=== PATIENT | female | born 1960 | race Caucasian/White ===

== ENCOUNTER 2024-07-06 23:48 | Emergency (ER) | payer OTHER, SELFPAY ==
[2024-07-06 23:48] VITALS: BMI 25.1
[2024-07-06 23:52] VITALS: BP 151/65
[2024-07-07 01:33] VITALS: BP 147/70
[2024-07-07 02:00] VITALS: BP 137/70
--- NOTE | 2024-07-07 02:38 | ED.GENMED ---
History of Present Illness
<Ana Franks MD, Resident - Last Filed: 07/07/24 04:14>
General
Chief Complaint: Facial Problem
Source: patient and family
Exam Limitations: none
Time Seen by Provider: 07/07/24 02:32
Nursing documentation reviewed up to this point in time: agreed with except (radiating into head, unilateral headaches.)
History of Present Illness
History of Present Illness:
64-year-old female with past medical history of cervical carcinoma, knee joint arthroscopy, nephrolithiasis presents to the hospital with left-sided jaw pain. Her jaw pain initially started on Monday, sharp and shooting, radiating into her left
gnosticism and into her left side of the head as well as neck, the episode lasted for few hours and went away after taking 2 doses of Motrin. Her headache started again on Monday afternoon, she had 2-3 episodes of waxing and waning headaches and jaw
aches. The pain does not travel into the back of eye, no blurring of vision, no ear pain or ear discharge on the left side, no sore throat, no fevers, chills, nausea, vomiting, weakness and altered sensation in her limbs, lightheadedness,
dizziness, bilateral eye or facial pain. Pain is exacerbated by chewing on nuts or hard objects.
She states that she was feeling a little under the weather since yesterday afternoon. She is under major stress with loss of her in December 2023.
No similar episodes in the past, no diagnosis of migraine or TMJ disorder
Past History
<Ana Franks MD, Resident - Last Filed: 07/07/24 04:14>
Past History
ED Past Medical History: Other
Social History
Tobacco: Non-smoker
Alcohol: Former (Quit more than 20 years ago.)
Drug: None
Personal:
Living: with family
Employment: Employed
Family History
Family History: Other
Review of Systems
<Ana Franks MD, Resident - Last Filed: 07/07/24 04:14>
Review of Systems
Allergies reviewed?: Yes
Constitutional: Reports fatigue
EENT: Reports other (Jaw pain, radiating into her head)
Respiratory: Reports no symptoms
Cardiac: Reports no symptoms
ABD/GI: Reports no symptoms
: Reports no symptoms
Musculoskeletal: Reports neck pain
Skin: Reports no symptoms
Neurological: Reports no symptoms
Endocrine: Reports no symptoms
Hematologic/Lymphatic: Reports no symptoms
Psychiatric: Reports no symptoms
Phy Exam
<Ana Franks MD, Resident - Last Filed: 07/07/24 04:14>
General Physical Exam
General Presentation: well appearing and no apparent distress
General age: appears stated age
General Skin: warm and dry
General Mental: alert
General Hydration: appears well hydrated
ENT Exam
ENT Exam: EOMI, TM's normal, neck supple and other (No tenderness over the C-spine, no cervical lymphadenopathy.)
Additional ENT: Mild to moderate tenderness on palpation of the left zygomatic process,
Eye Exam
Eye Exam: PERRL, EOMI, visual sbaa normal and other (Optic disc within normal limits on fundus examination.)
Cardiovascular Exam
Cardiovascular Exam: regular rate/rhythm, no edema, no gallop, no murmur and normal peripheral pulses
Heart Sounds: normal
Pulmonary Exam
Pulmonary Exam: lungs clear, no respiratory distress, no rales, no crackles and no rhonchi
Gastrointestinal Exam
Gastrointestinal Exam: normal bowel sounds, non tender, soft and non distended
Neurological Exam
Neurological Exam: alert, no motor deficits, normal reflexs and speech normal
Musculoskeletal Exam
Musculoskeletal Exam: full ROM
Skin Exam
Skin Exam: normal color
Course
<Ana Franks MD, Resident - Last Filed: 07/07/24 04:14>
Orders/Labs/Results
Orders:
Orders
07/07/24 03:11
Amoxicillin 875 mg/Clav 125 mg [Augmentin 875 mg/125 mg] 1 tablet PO NOW STA
Ibuprofen [Motrin] 600 mg PO NOW STA
Lab work not needed.
Give a single dose of Augmentin due to suspicion for an early dental carry. Also give Motrin for pain.
Vital Signs
Initial and Last Documented VS:
Initial Vital Signs
Temp Pulse Resp BP Pulse Ox
97.7 F 78 20 151/65 98
07/06/24 23:52 07/06/24 23:52 07/06/24 23:52 07/06/24 23:52 07/06/24 23:52
Last Documented Vital Signs
Temp Pulse Resp BP Pulse Ox
97.7 F 78 20 136/82 98
07/06/24 23:52 07/06/24 23:52 07/06/24 23:52 07/07/24 03:00 07/07/24 03:00
Comment
Comment:
Consider some tooth infection.
<Cat Mars DO - Last Filed: 07/07/24 03:09>
Orders/Labs/Results
Orders:
Orders
07/07/24 03:11
Amoxicillin 875 mg/Clav 125 mg [Augmentin 875 mg/125 mg] 1 tablet PO NOW STA
Ibuprofen [Motrin] 600 mg PO NOW STA
Vital Signs
Initial and Last Documented VS:
Initial Vital Signs
Temp Pulse Resp BP Pulse Ox
97.7 F 78 20 151/65 98
07/06/24 23:52 07/06/24 23:52 07/06/24 23:52 07/06/24 23:52 07/06/24 23:52
Last Documented Vital Signs
Temp Pulse Resp BP Pulse Ox
97.7 F 78 20 136/82 98
07/06/24 23:52 07/06/24 23:52 07/06/24 23:52 07/07/24 03:00 07/07/24 03:00
<Ana Franks MD, Resident - Last Filed: 07/07/24 04:14>
MDM/Problems Addressed
Differential Diagnosis Includes:
Tooth infection versus trigeminal neuralgia versus migraine.
MDM/Problems Addressed:
Antibiotic and Advil given.
<Ana Franks MD, Resident - Last Filed: 07/07/24 04:14>
*Pulse Oximetry
Patient hypoxic: no
*EKG
Interpreted by ED Provider?: NA
*Critical Care Note
Total Time (30-74mins, 75-104mins- exclusive of procedures): Not Applicable
Data Reviewed
Review of Other/Old Records Reveals: Records
<Ana Franks MD, Resident - Last Filed: 07/07/24 04:14>
Comment
Comment:
Tooth abscess.
<Ana Franks MD, Resident - Last Filed: 07/07/24 04:14>
Update Note
Update Note:
Patient is feeling much better after taking Augmentin and Advil.
ED Attending Note
<Ana Franks MD, Resident - Last Filed: 07/07/24 04:14>
-
Portions of this chart may have been created with voice recognition software.� Occasional wrong word or��sound alike� substitutions may have occurred due to the inherent limitations of voice recognition software.
<Cat Mars DO - Last Filed: 07/07/24 03:09>
ED Attending Note
Patient seen and examined by attending physician: Yes
I performed a history and physical exam of patient and discussed management with resident, I reviewed resident's note and agree with documented findings and plan of care.: Yes
ED Attending Note:
64-year-old woman presents with several day history of left lateral cheek pain, worse with chewing. Pain began after chewing on peanuts. She has not had a fever, no swelling, no sore throat. Intermittent twinges of pain to her left face/left
cheek region. She did undergo dental work to that left side perhaps 7 to 8 months ago without incident.
She has been taking ibuprofen 400 mg with mild to moderate temporary improvement.
64-year-old woman appears her stated age, bright and alert, pleasant, appears in no acute distress.
Exam remarkable for mild tenderness left lateral cheek but no tenderness at the TMJ. No overt focal dental tenderness nor focal dental carry. There is no facial soft tissue swelling nor erythema. Posterior pharynx is clear. Tongue is midline.
Neck is supple, nontender, no adenopathy.
Concern for occult, early dental carry. Other consideration is trigeminal neuralgia.
Recommend initiating a course of antibiotic for potential dental infection, continue ibuprofen increasing to 600 mg every 6 hours as needed for pain. Soft foods.
Prompt follow-up with dentist for recheck. Patient plans to call her dentist on Monday morning.
Discharge Plan
Departure
Patient Disposition: Home (Routine Discharge)
Date of Disposition: 07/07/24
Time of Disposition: 04:11
Patient with high blood pressure during this ER visit?: Yes
Condition: Good
Discharge Problem:
Dental caries
Instructions: Tooth Abscess (DC), BLOOD PRESSURE
Prescriptions:
New
amoxicillin-pot clavulanate 875-125 mg tablet
1 tab PO BID 10 Days Qty: 20 0RF
No Action
naproxen sodium [Aleve] 220 MG tablet
2 tab PO PRN PRN (Reason: pain)
Referrals:
Olvin Patel MD [Family Provider] -
Activity Restrictions/Additional Instructions:
Take antibiotic orally twice a day, take your Motrin a maximum of 600-803 times a day with food but not on empty stomach.
Follow-up with your dentist within the next 2 weeks, follow-up with your primary care in 2 weeks.
Interventions
Interventions:
*Risk Screen - Suicide Last Done: 07/06/24 23:52
*General Assessment Last Done: 07/06/24 23:52
*Neglect/Abuse Screening Last Done: 07/06/24 23:52
ED- Fall Risk Assessment Last Done: 07/06/24 23:52
*ED COVID-19 Vaccine History Last Done: 07/06/24 23:52
ED- Neurological Assessment Last Done: 07/07/24 01:34
ED-Skin Assessment Last Done: 07/07/24 01:34
Discharge Date and Time
Print Language: MONGOLIAN
[2024-07-07 03:00] VITALS: BP 136/82
[2024-07-07] MEDS: MOTRIN 600 MG PO (03:18)
[2024-07-07] MEDS: AUGMENTIN 875 MG/125 MG 1 TABLET PO (03:18)
[2024-07-07 04:22] VITALS: BP 137/68
== END 2024-07-07 04:28 | disposition home or self-care (01) ==
LOC: EMR 23:48
PROVIDERS: EMERGENCY PHYSICIAN Emergency Medicine; FAMILY PHYSICIAN Family Medicine
DX: K02.9 Dental caries, unspecified (principal); Z85.41 Personal history of malignant neoplasm of cervix uteri
CPT/HCPCS: 99283

== ENCOUNTER → 2024-08-16 13:51 | Outpatient (REF) | payer OTHER, SELFPAY | LOC: HWRAD 13:51 | PROVIDERS: ATTENDING PHYSICIAN Physician Assistant; FAMILY PHYSICIAN Nurse Practitioner Family | DX: R31.0 Gross hematuria (principal); R10.9 Unspecified abdominal pain | CPT/HCPCS: 74176 ==